=== PATIENT | male | born 1985 | race Caucasian/White ===

== ENCOUNTER 2018-07-15 20:52 | Emergency (ER) | payer BC ==
[~2018-07-15] VITALS: Ht 172.7 cm; Wt 94.8 kg
[2018-07-15] MEDS ORDERED: ALPRAZOLAM 1 MG TABLET (21:38)
[2018-07-15] MEDS ORDERED: AMOX-CLAV 875-125 MG TABLET (21:38)
[2018-07-15] MEDS ORDERED: LITHIUM CARBONATE 300 MG CAP (21:38)
[2018-07-15] MEDS ORDERED: DULOXETINE HCL DR 60 MG CAP (21:38)
[2018-07-15] MEDS ORDERED: DEXTROAMP-AMPHET ER 30 MG CAP (21:38)
--- NOTE | 2018-07-15 22:04 | NUR ---
Patient discharged to home in stable conditon. Written and verbal after care instructions given. Patient verbalizes understanding of instructions.
[2018-07-15 22:07] VITALS: BP 147/94
== END 2018-07-15 22:07 | disposition home or self-care (01) ==
LOC: ER 20:54
DX: Z77.21 Contact with and (suspected) exposure to potentially hazardous body fluids (principal); K21.9 Gastro-esophageal reflux disease without esophagitis
CPT/HCPCS: A4663